=== PATIENT | male | born 1995 | race Two or more races ===

== ENCOUNTER 2017-05-20 22:25 | Emergency (ER) | payer MEDICAID ==
[~2017-05-20] VITALS: Ht 175.3 cm; Wt 63.5 kg
[2017-05-20 22:30] VITALS: BP 96/72
[2017-05-20 22:58] LABS: Basophils # (auto) 0 uL; Basophils % (auto) 0.5 % (0.0-2.0); CONDITION Y; Eosinophils # (auto) 0.2 uL; Eosinophils % (auto) 1.6 % (0.0-7.0); Hematocrit 48.9 % (41.0-53.0); Hemoglobin 16.4 g/dL (13.5-17.5); Lymphocytes # (auto) 1.8 uL; Lymphocytes % (auto) 18.1 % (10.0-50.0); Mean Corpuscular Hemoglobin 30.4 pg (28.0-32.0); Mean Corpuscular Hgb Conc. 33.5 g/dL (32.0-36.0); Mean Corpuscular Volume 90.7 fL (80.0-100.0); Mean Platelet Volume 8.6 fL (7.4-10.4); Monocytes # (auto) 0.4 uL; Monocytes % (auto) 4.5 % (0.0-12.0); Neutrophils # (auto) 7.3 uL; Neutrophils % (auto) 75.3 % (37.0-80.0); Platelet Count (auto) 228 10^3/uL (140-450); Red Cell Distribution Width 13.1 % (11.6-16.0); White Blood Cell 9.7 10^3/uL (4.4-10.8)
[2017-05-20 23:15] LABS: Albumin 4.7 g/dL (3.4-5.0); BUN/Creatinine Ratio 10.8; Potassium 4.2 mmol/L (3.5-5.1)
[2017-05-20 23:18] LABS: Bilirubin, Total 0.5 mg/dL (0.2-1.0)
[2017-05-20 23:44] LABS: Urine Bilirubin Negative (Negative); Urine Blood Negative /uL (Negative); Urine Color Colorless (Yellow); Urine Glucose Normal (Normal); Urine Ketone Negative (Negative); Urine Nitrite Negative (Negative); Urine RBC <1 /hpf (0 - 3); Urine Urobilinogen Normal (Negative); Urine pH 5.5 (5.0-8.0)
== END 2017-05-21 05:24 | disposition left against medical advice (07) ==
LOC: EDBD 22:25 → ER 22:27
DX: F10.10 Alcohol abuse, uncomplicated (principal); Z53.21 Procedure and treatment not carried out due to patient leaving prior to being seen by health care provider
CPT/HCPCS: 36415; 80053; 80307; 80320; 81001; 85025

== ENCOUNTER 2017-10-02 18:41 | Emergency (ER) | payer MEDICAID ==
[~2017-10-02] VITALS: Ht 170.2 cm; Wt 63.6 kg
[2017-10-02 20:30] VITALS: BP 112/70
[2017-10-02] MEDS ORDERED: cefTRIAXone SOD 1,000 MG VL ONE (20:30)
[2017-10-02] MEDS ORDERED: cefTRIAXone 1GM/10ml IVPUSH 10 ML IV ONE (20:30)
[2017-10-02] MEDS ORDERED: cefTRIAXone SOD 1,000 MG VL IM ONE (20:45)
== END 2017-10-02 22:05 | disposition home or self-care (01) ==
LOC: ER 18:41
DX: J03.90 Acute tonsillitis, unspecified (principal); J45.909 Unspecified asthma, uncomplicated; F17.210 Nicotine dependence, cigarettes, uncomplicated; F12.90 Cannabis use, unspecified, uncomplicated
CPT/HCPCS: 70486; 96372; 99284; J0696

== ENCOUNTER 2022-01-17 07:43 | Emergency (ER) | payer MEDICAID ==
[~2022-01-17] VITALS: Ht 170.2 cm; Wt 90.7 kg
[2022-01-17 07:43] VITALS: BP 128/92
[2022-01-17] MEDS ORDERED: methylPREDNISolone SOD SUCC 125 MG/2 ML VL ONE (07:51)
[2022-01-17] MEDS ORDERED: methylPREDNISolone SOD SUCC 125 MG/2 ML VL IM ONE (08:00)
[2022-01-17] MEDS ORDERED: ALBUTEROL SULF 2.5 MG/0.5ML(0.5%) NEB SOLN NEB ONE (08:00)
[2022-01-17] MEDS ORDERED: IPRATROPIUM BROM 0.5 MG/2.5ML INH SOL NEB ONE (08:00)
== END 2022-01-17 09:06 | disposition home or self-care (01) ==
LOC: ER 07:43
DX: J45.901 Unspecified asthma with (acute) exacerbation (principal); F17.210 Nicotine dependence, cigarettes, uncomplicated; Z76.0 Encounter for issue of repeat prescription; Z86.69 Personal history of other diseases of the nervous system and sense organs
CPT/HCPCS: 94640; 96372; 99283; J2930; J7644

== ENCOUNTER 2022-01-28 02:30 | Emergency (ER) | payer MEDICAID ==
[~2022-01-28] VITALS: Ht 170.2 cm; Wt 90.7 kg
[2022-01-28 02:30] VITALS: BP 122/70
[2022-01-28] MEDS ORDERED: predniSONE 20 MG TAB PO ONE (03:30)
[2022-01-28] MEDS ORDERED: ALBUAER3 IN (05:35)
[2022-01-28] MEDS ORDERED: PRED20TA2 PO (05:35)
== END 2022-01-28 07:08 | disposition home or self-care (01) ==
LOC: ER 02:35
DX: J45.901 Unspecified asthma with (acute) exacerbation (principal); F17.210 Nicotine dependence, cigarettes, uncomplicated

== ENCOUNTER 2022-04-19 08:05 | Emergency (ER) | payer MEDICAID ==
[~2022-04-19] VITALS: Ht 170.2 cm; Wt 90.9 kg
[~2022-04-19 08:05] MED LIST: ALBUAER3 IN; PRED20TA2 PO
[2022-04-19 08:10] VITALS: BP 121/83
[2022-04-19] MEDS ORDERED: KETOROLAC TROMETH 60MG/2ML VIAL IM ONE (08:45)
[2022-04-19] MEDS ORDERED: BACL10TA PO (09:12)
[2022-04-19] MEDS ORDERED: IBUP800T27 PO (09:12)
== END 2022-04-19 09:23 | disposition home or self-care (01) ==
LOC: ER 08:05
DX: S39.012A Strain of muscle, fascia and tendon of lower back, initial encounter (principal); J45.909 Unspecified asthma, uncomplicated; F17.210 Nicotine dependence, cigarettes, uncomplicated; Z79.899 Other long term (current) drug therapy; X50.1XXA Overexertion from prolonged static or awkward postures, initial encounter; Y93.89 Activity, other specified; Y92.89 Other specified places as the place of occurrence of the external cause; Y99.8 Other external cause status
CPT/HCPCS: 71101; 96372; 99283; J1885

== ENCOUNTER 2022-05-24 19:36 | Emergency (ER) | payer MEDICAID ==
[~2022-05-24] VITALS: Ht 175.3 cm; Wt 90.0 kg
[~2022-05-24 19:36] MED LIST changes: +BACL10TA PO; +IBUP800T27 PO
[2022-05-24 19:40] VITALS: BP 130/77
[2022-05-24] MEDS ORDERED: IPRATROPIUM BROM 0.5 MG/2.5ML INH SOL NEB ONE (20:00)
[2022-05-24] MEDS ORDERED: ALBUTEROL SULF 2.5 MG/0.5ML(0.5%) NEB SOLN NEB ONE (20:00)
[2022-05-25] MEDS ORDERED: ALBU108A5 IN (00:14)
[2022-05-25] MEDS ORDERED: PRED20TA2 PO (00:14)
== END 2022-05-25 00:29 | disposition home or self-care (01) ==
LOC: ER 19:36
DX: J45.901 Unspecified asthma with (acute) exacerbation (principal); F17.210 Nicotine dependence, cigarettes, uncomplicated; F12.10 Cannabis abuse, uncomplicated
CPT/HCPCS: 71046; 94640; 99283; J7644